=== PATIENT | female | born 1985 | race Caucasian/White ===

== ENCOUNTER 2016-07-13 01:27 | Emergency (ER) | payer MEDICAID ==
[~2016-07-13] VITALS: Ht 165.1 cm; Wt 63.5 kg
[~2016-07-13 01:27] MED LIST: ALPR0.254; ALPR1TAB7; HYDR500T13; OXCARBAZEPINE 300 MG TABLET; SERT-274
[2016-07-13 01:35] VITALS: BP 125/80
== END 2016-07-13 03:16 | disposition left against medical advice (07) ==
LOC: ER 01:29
DX: G43.909 Migraine, unspecified, not intractable, without status migrainosus (principal); Z53.21 Procedure and treatment not carried out due to patient leaving prior to being seen by health care provider